=== PATIENT | female | born 1990 | race African-American/Black ===

== ENCOUNTER 2024-11-09 10:09 | Emergency (ER) | payer MEDICAID ==
[~2024-11-09] VITALS: Ht 152.4 cm; Wt 94.0 kg
[2024-11-09 10:13] VITALS: O2SAT 100
[2024-11-09] MEDS: FLUORESCEIN SODIUM 1MG/STRIP RIGHTEYE ONE (10:45)
[2024-11-09] MEDS: TETRACAINE 0.5% OPHTH DROPS 4ML RIGHTEYE ONE (10:45)
[2024-11-09 10:50] VITALS: BP 143/92; PULSE 68; RESP 16; TEMP 37.1; O2SAT 99
[2024-11-09] MEDS ORDERED: ERYT1OIN6 RIGHTEYE (11:16)
== END 2024-11-09 11:25 | disposition home or self-care (01) ==
LOC: ER 10:09
DX: S05.01XA Injury of conjunctiva and corneal abrasion without foreign body, right eye, initial encounter (principal); X58.XXXA Exposure to other specified factors, initial encounter; Y93.89 Activity, other specified; Y92.89 Other specified places as the place of occurrence of the external cause; Y99.8 Other external cause status
CPT/HCPCS: 99283